=== PATIENT | female | born 1965 ===

== ENCOUNTER 2022-06-18 14:14 | Outpatient (CLI) | payer OTHER ==
[~2022-06-18 14:14] MED LIST: CEFUROXIME500 MG PO; FLONASE16 GM NS; MEDROL4 MG PO; ZYRTEC10 MG PO
== END 2022-06-18 14:24 | disposition home or self-care (01) ==
LOC: PPH VACUNA 14:14
PROVIDERS: ATTEND Emergency Medicine Pediatric Emergency Medicine
DX: Z23 Encounter for immunization (principal)